=== PATIENT | female | born 1970 | race Caucasian/White ===

== ENCOUNTER 2019-09-21 23:55 | Emergency (ER) | payer OTHER ==
[2019-09-22] MEDS ORDERED: CHERRY SYRUP 10 ML UDC PO ONE (01:30)
[2019-09-22] MEDS ORDERED: DEXAMETHASONE 10 MG/ML VIAL PO STA (01:30)
--- NOTE | 2019-09-22 01:34 | ED Physician Documentation ---
PD HPI FEMALE - Stated complaint Stated Complaint: FEM - Chief complaint Chief Complaint: General - History obtained from History obtained from: Patient - History of Present Illness Timing - onset: Yesterday Timing - duration: Days (1) Timing - details: Gradual onset, Still present Associated symptoms: Vaginal pain, Genital sore/lesion Contributing factors: No: Similar symptoms before: Diagnosis (bartholins cyst) Recently seen: Clinic - Additional information Additional information: 48-year-old female reports that she and her were on a celebration and after a night of intimacy she developed symptoms of a yeast infection and this did not resolve with the Monistat in fact when she used the Monistat she found that she had a lot of pain and swelling to the vaginal area. She washed this off and she went to her regular doctor and got some Diflucan which resolved her yeast problem. She has now had persistence of some swelling to the right labia and this has been tender as well. She is even having some trouble walking because of this. She does not have excessive swelling and she does not have a mass present there. She has had a Bartholin cyst previously in this same area. Review of Systems Constitutional: denies: Fever Respiratory: denies: Cough GI: denies: Abdominal Pain, Nausea, Vomiting : reports: Other (vaginal pain). 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 - Present Medications Home Medications: Ambulatory Orders Medication Instructions Recorded Confirmed Hydrocodone/Acetaminophen [Vicodin 1 tab PO PRN PRN 04/20/16 04/25/16 5-300 mg Tablet] Cyclobenzaprine [Flexeril] 10 mg PO TID PRN #20 tablet 04/25/16 LORazepam [Ativan] 1 tab PO Q8HR PRN 04/25/16 04/25/16 Ondansetron Odt [Zofran Odt] 1 tab PO BID PRN 04/25/16 04/25/16 predniSONE [Prednisone] 1 tab PO DAILY 04/25/16 04/25/16 - Allergies Allergies/Adverse Reactions: Allergies Allergy/AdvReac Type Severity Reaction Status Date / Time iodine Allergy Rash Verified 04/25/16 13:03 Iodine and Iodide Containing Allergy Anaphylaxis Verified 04/25/16 13:03 Produc latex Allergy Rash Verified 04/25/16 13:03 morphine Allergy Rash Verified 04/25/16 13:03 Penicillins Allergy Hives Verified 04/25/16 13:03 Sulfa (Sulfonamide Allergy Emesis Verified 04/25/16 13:03 Antibiotics) ciprofloxacin [From Cipro] AdvReac Unknown Verified 04/25/16 13:03 ciprofloxacin HCl * AdvReac Unknown Verified 04/25/16 13:03 [From Cipro] - Social History Does the pt smoke?: No Smoking Status: Never smoker Does the pt drink ETOH?: No Does the pt have substance abuse?: No - Immunizations Immunizations are current?: Yes PD ED PE NORMAL - General General: Alert and oriented X 3, No acute distress, Well developed/nourished - HEENT HEENT: Atraumatic, PERRL, EOMI - Respiratory Respiratory: No respiratory distress - Female Female : Graphics Artist present (Sara), Other (There is erythema and swelling to the right labia and to a lessor extent the left labia. The swelling is not massive and appaers non-specific like a contact dermatitis. There is no palpable mass to suggest barthalins cyst. There is no discharge. 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, No motor deficit, No sensory deficit, Normal speech Eye Opening: Spontaneous Motor: Obeys Commands Verbal: Oriented GCS Score: 15 - Psych Psych: Normal mood, Normal affect Results - Vitals Vitals: Vital Signs - 24 hr 09/22/19 00:05 Temperature 37.3 C Heart Rate 84 Respiratory 18 Rate Blood Pressure 142/88 H O2 Saturation 100 Oxygen O2 Source Room air PD MEDICAL DECISION MAKING - ED course Complexity details: considered differential, d/w patient ED course: 48-year-old female with what appears to be a contact dermatitis to the right labia is administered dexamethasone 10 mg orally and we will encourage her to use hydrocortisone twice per day and expect to have resolution of her symptoms within the next day to 2. Departure - Departure Disposition: Home, Self Care Clinical Impression: Contact dermatitis Qualifiers: Contact dermatitis type: irritant Contact dermatitis trigger: drugs in contact with skin Qualified Code(s): L24.4 - Irritant contact dermatitis due to drugs in contact with skin Condition: Stable Instructions: ED Dermatitis Contact Follow-Up: Adama Pierson DO [Primary Care Provider] - Comments: Today it appears that you have a contact dermatitis to the area on the right labia. The recommendation is to cleanse the area well and apply topical [id number] hydrocortisone. Today you were given a single dose of dexamethasone. This should help with the swelling by morning.
[2019-09-22 01:48] VITALS: BP 136/93
== END 2019-09-22 01:48 | disposition home or self-care (01) ==
LOC: ED 23:55
DX: L24.4 Irritant contact dermatitis due to drugs in contact with skin (principal)
CPT/HCPCS: 99282; A9270